=== PATIENT | male | born 1985 | race African-American/Black ===

== ENCOUNTER 2023-05-24 12:07 | Emergency (ER) | payer SELFPAY ==
--- NOTE | ~2023-05-24 | CT_ITS ---
EXAMINATION: CT ABDOMEN AND PELVIS WITHOUT CONTRAST CLINICAL INFORMATION: Abdominal pain COMPARISON: None available. TECHNIQUE: Multidetector volumetric imaging was performed from the superior aspect of the liver through the pubic symphysis. Sagittal and coronal reformatted images were obtained on the technologist's workstation. This CT examination was performed using dose optimization techniques as appropriate, variously including the following: *Automated exposure control *Adjustment of mA and/or kV according to patient size (this includes techniques or standardized protocols for targeted exams where dose is matched to indication/reason for exam; i.e. extremities or head) *Use of iterative reconstruction technique DLP: 516 mGy-cm FINDINGS: LUNG BASES: The visualized lung bases are unremarkable. LIVER, GALLBLADDER, AND BILIARY TREE: The liver is normal in size, shape, and attenuation. No focal hepatic lesion or biliary ductal dilatation is present. Is a punctate calcification left hepatic lobe. The gallbladder is unremarkable with no evidence of radiopaque gallstones, gallbladder wall thickening, or obvious pericholecystic inflammatory changes. PANCREAS: Unremarkable. SPLEEN: Unremarkable. ADRENAL GLANDS: Unremarkable. KIDNEYS AND URETERS: The kidneys are normal in size, shape, and attenuation. There is a 5 mm obstructive left UVJ radiopaque calculi with mild hydroureteronephrosis. No radiopaque renal calculi seen. There is no right-sided hydronephrosis. BLADDER: Unremarkable. GASTROINTESTINAL TRACT: The small and large bowel are unremarkable. The appendix is unremarkable. ABDOMINAL WALL: Small umbilical hernia containing fat. LYMPH NODES: Normal. VASCULAR: Unremarkable. PELVIC VISCERA: Unremarkable. OSSEOUS STRUCTURES: No aggressive lytic or sclerotic process seen. CT/CT abdomen pelvis wo IV con IMPRESSION: 5 mm obstructive left UVJ with mild hydroureteronephrosis. Fleischner guidelines were followed.
[2023-05-24 13:05] VITALS: BP 148/73; PULSE 82; RESP 18; TEMP 36.7; O2SAT 100; BMI 30.7
--- NOTE | 2023-05-24 13:06 | ED_ITS ---
HPI - General Adult General Chief complaint: Abdominal Pain Stated complaint: L side back pain/Vomiting Time Seen by Provider: 05/24/23 16:13 Source: patient Mode of arrival: ambulatory Limitations: no limitations History of Present Illness HPI narrative: Patient is a 37-year-old male presents emergency department for evaluation of left flank pain. Onset of pain was yesterday evening pain has been intermittent and sharp in nature. Has associated nausea and vomiting. Denies fevers, chills, dysuria, hematuria. Denies constipation or diarrhea. Denies history of similar pain in the past. Related Data Previous Rx's Medication Instructions Recorded ciprofloxacin HCl 500 mg tablet 500 mg PO BID #20 tabs 05/24/23 prednisone 20 mg tablet 20 mg PO DAILY #3 tabs 05/24/23 tamsulosin 0.4 mg capsule (Flomax) 0.4 mg PO DAILY #7 caps 05/24/23 Allergies Allergy/AdvReac Type Severity Reaction Status Date / Time No Known Allergies Allergy Verified 05/24/23 13:04 Review of Systems Review of Systems: Constitutional : No Weight loss, No Fever, No Chills ENT/Mouth :? No sore throat, No Rhinorrhea Eyes: No Swelling, No Redness Cardiovascular : No Chest Pain, No SOB, No Edema Respiratory : No Cough, No Sputum, No Wheezing Gastrointestinal : Positive Nausea, Positive Vomiting, no Diarrhea, positive abdominal pain, No Hematochezia, No Melena Genitourinary : No Dysuria, No Urinary Frequency, No Hematuria, No Urgency? Musculoskeletal : No joint pain, No Myalgias, No Joint Swelling Skin : No Skin Lesions, No rash Neuro : No Weakness, No Numbness, No Dizziness, No Headache Psych : No Anxiety/Panic, No Depression Heme/Lymph: No Bruising, No Lymphadenopathy Endocrine : No Polyuria, No Polydipsia Yes all other systems are reviewed and are negative [facility] Past Medical History Attestation statement: The following information was validated with the patient. Source: old records reviewed Surgical History (Updated 05/24/23 @ 18:31 by Cathryn Lewis) Hx of appendectomy Social History Social History Alcohol intake: current Alcohol intake frequency: holidays/special occasions only Smoked in Last 30 Days: Yes Use of substances other than those prescribed or required for medical reasons: Yes Substance Use Type: Marijuana Advance Directives: No Advance Directives Information Provided: Yes Physical Exam ED Vital Signs: Vital Signs - 24 hr 05/24/23 13:05 05/24/23 17:03 05/24/23 20:24 Temperature 98.1 F 98.6 F 98.6 F Pulse Rate 82 72 57 Respiratory Rate 18 16 18 Blood Pressure 148/73 H 150/78 H 120/60 Pulse Oximetry 100 98 96 Oxygen Delivery Method Room Air Room Air Room Air BMI result Body Mass Index 30.7 Appearance: Alert.?Oriented to person, place and time. No acute distress.?Normal affect. Eyes: Pupils equal, round and reactive to light.? ENT: Pharynx normal.?? Neck: Normal inspection.? Neck supple.?? CVS: Heart sounds normal. Normal heart rate and rhythm.? Pulses normal.?? Respiratory: No respiratory distress.? Lung sounds clear to auscultation bilaterally?? Abdomen: Soft and non-tender. Normoactive bowel sounds. No pulsatile mass.??Positive left CVA tenderness Skin: Skin warm and dry.? Normal skin color.? Extremities: No lower extremity edema.? Neuro: Moves all extremities spontaneously. Sensation intact bilaterally.No focal neuro deficits. Ambulates with normal steady gait. Course Course Course Narrative: This is an RME: Additional HPI, ROS, PE not included below will be deferred to primary provider. Patient is a 37 year old male coming in with abdominal pain, nausea and vomiting starting yesterday. No history of kidney stones. Plan: imaging, urine, labs Reevaluation(s) Reevaluation #1: CBC reveals significant leukocytosis of 21.8 with left shift, concern for infection at this time, Rocephin 1G IV ordered. At this time he not meet SIRS criteria, low suspicion for sepsis, will obtain lactate. CMP is overall unremarkable. Time: 16:57 Reevaluation #2: Urinalysis is without evidence of infection. CT without concern for pyelonephritis. At this time leukocytosis may be reactive due to vomiting, initially elevated lactic acid at 2.5 which improved to 0.9 after IV fluids. At this time not consistent with severe sepsis. I consulted with Urology on-call; Dr. Douglas Siddiqui, would advises additional 2 L of lactated Ringer's IV, given patient is tolerating oral intake will discharge home with Cipro b.i.d. times 10 days, prednisone daily x3 days, tamsulosin, and outpatient follow-up with Urology. I reviewed these findings with patient and he verbalized understanding. We discussed worrisome signs and symptoms that would warrant re-evaluation in the emergency department. Time: 19:30 Medications Administered Discontinued Medications Generic Name Dose Route Start Last Admin Trade Name Vladimirq PRN Reason Stop Dose Admin Sodium Chloride 1,000 mls @ 999 mls/hr 05/24/23 16:45 05/24/23 19:05 Ns IV 05/24/23 17:45 Infused .Q1H1M MORRIS Infusion Ceftriaxone Sodium 1 gm/ 50 mls @ 100 mls/hr 05/24/23 16:57 05/24/23 18:25 Sodium Chloride IV 05/24/23 17:26 Infused ONCE ONE Infusion Lactated Ringer's 1,000 mls @ 999 mls/hr 05/24/23 19:45 05/24/23 22:15 Lr IV 05/24/23 21:45 999 mls/hr .Q1H1M MORRIS Administration Ketorolac Tromethamine 30 mg 05/24/23 16:35 05/24/23 17:20 Ketorolac Tromethamine 30 Mg/Ml Vial IVPUSH 05/24/23 16:36 30 mg ONCE ONE Administration Ondansetron HCl 4 mg 05/24/23 16:35 05/24/23 17:20 Ondansetron Hcl 4 Mg/2 Ml Vial IVPUSH 05/24/23 16:36 4 mg ONCE ONE Administration Medical Decision Making Medical Decision Making [facility] Narrative: Patient is a 37-year-old male with no reported past medical history presenting to emergency department for evaluation of left flank pain as per HPI. At the time my examination he appears uncomfortable but overall seems nontoxic, he is afebrile. Examination notable for left CVA tenderness. I reviewed CT of the abdomen and pelvis as obtained by [facility] provider which reveals a 5 mm obstructive left UVJ stone with mild hydroureter nephrosis. Will obtain CBC, BMP, and trial Toradol IV for pain and ondansetron IV for nausea. 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 (See course narrative for further detail) 05/24/23 16:27 05/24/23 16:27 Labs: Lab Results 05/24/23 05/24/23 05/24/23 Range/Units 16:27 16:27 16:56 WBC 21.8 H (4.8-10.8) X10*3/uL RBC 5.76 (4.60-5.80) X10*6/uL Hgb 16.8 (14.0-18.0) g/dl Hct 48.9 (42.0-52.0) % MCV 84.9 (80.0-98.0) fL MCH 29.2 (27.0-33.0) pg MCHC 34.4 (31.0-36.0) g/dl RDW 13.7 (11.0-16.0) % Plt Count 228 (160-400) X10*3/uL MPV 11.0 (9.4-12.4) fL Immature Gran % (Auto) 0.7 H (0.0-0.4) % Neut % (Auto) 84.7 H (45-73) % Lymph % (Auto) 8.9 L (20-40) % [place] % (Auto) 5.3 (2-11) % Eos % (Auto) 0.1 (0-4) % Baso % (Auto) 0.3 (0-2) % Lymph # (Auto) 1.9 (1.2-4.9) X10*3/uL [place] # (Auto) 1.2 (0.1-1.2) X10*3/uL Eos # (Auto) 0.0 (0.0-0.4) X10*3/uL Baso # (Auto) 0.1 (0.0-0.2) X10*3/uL Abs Immat Gran (auto) 0.15 H (0.00-0.03) X10*3/uL Absolute Neuts (auto) 18.5 H (2.0-8.3) x10*3/uL Absolute Nucleated RBC 0.000 (0.0-0.012) X10*3/uL Nucleated RBC % (auto) 0.0 (0.0-0.2) /100WBC Sodium 141 (135-145) mmol/L Potassium 3.9 (3.3-5.1) mmol/L Chloride 105 (96-108) mmol/L Carbon Dioxide 27 (22-29) mmol/L Anion Gap 13 (12-20) BUN 11 (9-16) mg/dL Creatinine 1.14 (0.5-1.4) mg/dL Estim Creat Clear Calc 86.1 Estimated GFR > 60 Random Glucose 133 H (60-115) mg/dL Lactic Acid (0.5-2.0) mmol/L Lactic Acid F/U @ 2Hr (0.5-2.0) mmol/L Calcium 9.8 (8.4-10.2) mg/dL Magnesium 2.0 (1.6-2.6) mg/dL Total Bilirubin 1.2 H (0.0-1.0) mg/dL AST 23 (5-37) U/L ALT 32 (0-40) U/L Alkaline Phosphatase 79 (39-117) U/L Total Protein 7.8 (6.5-8.0) g/dL Albumin 4.6 (3.5-5.0) g/dL Lipase 21 (8-78) U/L Urine Color Yellow Urine Appearance Clear Urine pH 6.0 (5.0-9.0) Ur Specific [place] 1.010 (1.005-1.025) Urine Protein Trace (Neg-Trace) mg/dL Urine Glucose (UA) Negative (Negative) mg/dL Urine Ketones Negative (Negative) mg/dL Urine Blood Small (1+) H (Negative) Urine Nitrite Negative (Negative) Ur Leukocyte Esterase Negative (Negative) Urine RBC 11-20 H (0-2) /HPF Urine WBC 0-5 (0-5) /HPF Ur Squamous Epith Cells 0-2 (0-2) /HPF Urine Bacteria None Seen (None Seen) Hyaline Casts 0-2 (0-2) /LPF 05/24/23 05/24/23 Range/Units 17:04 20:10 WBC (4.8-10.8) X10*3/uL RBC (4.60-5.80) X10*6/uL Hgb (14.0-18.0) g/dl Hct (42.0-52.0) % MCV (80.0-98.0) fL MCH (27.0-33.0) pg MCHC (31.0-36.0) g/dl RDW (11.0-16.0) % Plt Count (160-400) X10*3/uL MPV (9.4-12.4) fL Immature Gran % (Auto) (0.0-0.4) % Neut % (Auto) (45-73) % Lymph % (Auto) (20-40) % [place] % (Auto) (2-11) % Eos % (Auto) (0-4) % Baso % (Auto) (0-2) % Lymph # (Auto) (1.2-4.9) X10*3/uL [place] # (Auto) (0.1-1.2) X10*3/uL Eos # (Auto) (0.0-0.4) X10*3/uL Baso # (Auto) (0.0-0.2) X10*3/uL Abs Immat Gran (auto) (0.00-0.03) X10*3/uL Absolute Neuts (auto) (2.0-8.3) x10*3/uL Absolute Nucleated RBC (0.0-0.012) X10*3/uL Nucleated RBC % (auto) (0.0-0.2) /100WBC Sodium (135-145) mmol/L Potassium (3.3-5.1) mmol/L Chloride (96-108) mmol/L Carbon Dioxide (22-29) mmol/L Anion Gap (12-20) BUN (9-16) mg/dL Creatinine (0.5-1.4) mg/dL Estim Creat Clear Calc Estimated GFR Random Glucose (60-115) mg/dL Lactic Acid 2.5 H* (0.5-2.0) mmol/L Lactic Acid F/U @ 2Hr 0.9 (0.5-2.0) mmol/L Calcium (8.4-10.2) mg/dL Magnesium (1.6-2.6) mg/dL Total Bilirubin (0.0-1.0) mg/dL AST (5-37) U/L ALT (0-40) U/L Alkaline Phosphatase (39-117) U/L Total Protein (6.5-8.0) g/dL Albumin (3.5-5.0) g/dL Lipase (8-78) U/L Urine Color Urine Appearance Urine pH (5.0-9.0) Ur Specific [place] (1.005-1.025) Urine Protein (Neg-Trace) mg/dL Urine Glucose (UA) (Negative) mg/dL Urine Ketones (Negative) mg/dL Urine Blood (Negative) Urine Nitrite (Negative) Ur Leukocyte Esterase (Negative) Urine RBC (0-2) /HPF Urine WBC (0-5) /HPF Ur Squamous Epith Cells (0-2) /HPF Urine Bacteria (None Seen) Hyaline Casts (0-2) /LPF Radiology Impression Discussion of test interpretation with radiology: I have reviewed the radiologist's reading. Radiologist Impression: CT/CT abdomen pelvis wo IV con IMPRESSION: 5 mm obstructive left UVJ with mild hydroureteronephrosis.? Independent Historian Clinical information obtained from an independent historian. History obtained from or confirmed by: Spouse (Present at bedside who confirms history) Prescription Management I considered prescription management with: Pain Medication, Antibiotic and Other (Prednisone, tamsulosin) Discharge Plan Discharge Clinical Impression: Hydronephrosis with urinary obstruction due to ureteral calculus Patient Disposition: Home, Self-Care Instructions: Hydronephrosis (ED), Ureteral Stones (ED) Additional Instructions: As discussed, you have a 5 MM stone in your left ureter. While in the emergency department received a dose of IV antibiotics. I have sent a prescription for oral antibiotics to your pharmacy; ciprofloxacin which he were to take twice daily for 10 days I have sent a prescription for tamsulosin to your pharmacy, please take this daily in the evening I have sent a prescription for prednisone which is a steroid to your pharmacy please take this daily for 3 days. Take this with food to prevent any stomach upset. Please contact urology to schedule a follow-up visit. I have provided their office information for you call them 1st thing tomorrow morning. Return back to emergency department any new or worsening symptoms or concerns. Prescriptions: New tamsulosin [Flomax] 0.4 mg capsule 0.4 mg PO DAILY Qty: 7 0RF prednisone 20 mg tablet 20 mg PO DAILY Qty: 3 0RF ciprofloxacin HCl 500 mg tablet 500 mg PO BID Qty: 20 0RF Referrals: Sola Hadley MD [Physician] -
[2023-05-24 16:41] LABS: MANUAL DIFF FLAG NO
[2023-05-24 16:43] LABS: Basophils Absolute Auto 0.1 X10*3/uL (0.0-0.2); Basophils Percent Auto 0.3 % (0-2); Eosinophils Percent Auto 0.1 % (0-4); Hematocrit 48.9 % (42.0-52.0); Hemoglobin 16.8 g/dl (14.0-18.0); Imm Gran Abs Auto 0.15 X10*3/uL (0.00-0.03); Imm Gran Pct Auto 0.7 % (0.0-0.4); Lymphocytes Absolute Auto 1.9 X10*3/uL (1.2-4.9); Lymphocytes Percent Auto 8.9 % (20-40); Mean Corpuscular HGB Conc 34.4 g/dl (31.0-36.0); Mean Corpuscular Hemoglobin 29.2 pg (27.0-33.0); Mean Corpuscular Volume 84.9 fL (80.0-98.0); Monocytes Absolute Auto 1.2 X10*3/uL (0.1-1.2); Monocytes Percent Auto 5.3 % (2-11); Neutrophils Absolute Auto 18.5 x10*3/uL (2.0-8.3); Neutrophils Percent Auto 84.7 % (45-73); Platelet Count 228 X10*3/uL (160-400); Red Blood Count 5.76 X10*6/uL (4.60-5.80); Red Cell Distribution Width 13.7 % (11.0-16.0); White Blood Count 21.8 X10*3/uL (4.8-10.8)
[2023-05-24 16:59] LABS: Alanine Aminotransferase 32 U/L (0-40); Albumin Level 4.6 g/dL (3.5-5.0); Alkaline Phosphatase 79 U/L (39-117); Anion Gap 13 (12-20); Aspartate Amino Transferase 23 U/L (5-37); Bilirubin Total 1.2 mg/dL (0.0-1.0); Blood Urea Nitrogen 11 mg/dL (9-16); Calcium 9.8 mg/dL (8.4-10.2); Carbon Dioxide 27 mmol/L (22-29); Chloride 105 mmol/L (96-108); Creatinine Clr Calc Pharmacy 86.1; Estimated Glomerular Filt Rate > 60; Glucose Random 133 mg/dL (60-115); Lipase 21 U/L (8-78); Potassium 3.9 mmol/L (3.3-5.1); Sodium 141 mmol/L (135-145); Total Protein 7.8 g/dL (6.5-8.0)
[2023-05-24 17:02] LABS: Appearance Urine Clear; Color Urine Yellow; Glucose Urine UA Negative (Negative); Leukocyte Esterase Urine Negative (Negative); Nitrite Urine Negative (Negative); UMIC TRIGGER UACC YES; Urine Blood Small (1+) (Negative); Urine Ketones Negative (Negative); Urine Protein Trace mg/dL (Neg-Trace)
[2023-05-24 17:03] VITALS: BP 150/78; PULSE 72; RESP 16; TEMP 37; O2SAT 98
--- NOTE | 2023-05-24 17:05 | PC.NURSE ---
20gIV placed in the right AC w/o complications, labs drawn and sent to lab.
[2023-05-24] MEDS: ondansetron HCL 4 MG/2 ML VIAL IVPUSH (17:20)
[2023-05-24] MEDS: Ketorolac Tromethamine 30 MG/ML VIAL IVPUSH (17:20)
[2023-05-24] MEDS: 0.9 % Sodium Chloride 1,000 ML 999 ML IV (17:21)
[2023-05-24 17:32] LABS: Lactic Acid 2.5 mmol/L (0.5-2.0)
[2023-05-24] MEDS: cefTRIAXone sodium 1 GM in 0.9 % Sodium Chloride 50 ML IV (17:55)
--- NOTE | 2023-05-24 18:30 | PC.NURSE ---
medication administered per provider order.
[2023-05-24 19:05] LABS: Bacteria Urine None Seen (None Seen); Hyaline Casts Urine 0-2 /LPF (0-2); Squamous Epithelial Cell Urine 0-2 /HPF (0-2); WBC Urine 0-5 /HPF (0-5)
[2023-05-24 19:08] LABS: Reflex Lactate? Lactic Acid Added
[2023-05-24] MEDS: Lactated Ringers 1,000 ML 999 ML IV ×2 (19:47→22:15)
--- NOTE | 2023-05-24 19:49 | PC.NURSE ---
IVF administered per provider order. pt verbalizing 3/10 pain post medication administration. pt resting comfortably in no apparent distress. will continue to monitor.
[2023-05-24 20:24] VITALS: BP 120/60; PULSE 57; RESP 18; TEMP 37; O2SAT 96
[2023-05-24 20:27] LABS: ~Lactic Acid-LAB USE ONLY 0.9 mmol/L (0.5-2.0)
--- NOTE | 2023-05-24 21:43 | PC.NURSE ---
Fluid administration delayed due previous liter going in slowly.
== END 2023-05-24 23:35 | disposition home or self-care (01) ==
PROVIDERS: Nurse Practitioner Family; Physician Assistant; Emergency Provider Student in an Organized Health Care Education/Training Program
DX: N13.2 Hydronephrosis with renal and ureteral calculous obstruction (principal)
CPT/HCPCS: 36415; 74176; 80053; 81001; 81003; 83605; 83690; 83735; 85025; 87040; 96361; 96365; 96375; 99285; J0696; J1885; J2405